=== PATIENT | male | born 2000 | race Caucasian/White ===

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

== ENCOUNTER 2023-12-14 01:04 | Emergency (ER) | payer OTHER | END 2023-12-14 03:10 | disposition home or self-care (01) | LOC: EC 01:04 | DX: Z00.8 Encounter for other general examination (principal) | CPT/HCPCS: 99284 ==